=== PATIENT | male | born 2005 | race African-American/Black ===

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

== ENCOUNTER 2023-07-24 16:23 | Outpatient (REF) | payer MEDICAID, SELFPAY ==
[2023-07-25 07:31] LABS: CT PCR NOT DETECTED (Not Detect.); NG PCR NOT DETECTED (Not Detect.)
== END 2023-07-24 16:24 | disposition home or self-care (01) ==
LOC: HO.CHCLNP 16:23
PROVIDERS: Visit Provider Family Medicine
DX: Z11.3 Encounter for screening for infections with a predominantly sexual mode of transmission (principal)
CPT/HCPCS: 0353U

== ENCOUNTER 2023-07-26 12:51 | Outpatient (REF) | payer MEDICAID, SELFPAY ==
[2023-07-26 14:23] LABS: MANUAL DIFF FLAG NO
[2023-07-26 14:34] LABS: Basophils Percent Auto 0.4 % (0-2); Eosinophils Absolute Auto 0.5 X10*3/uL (0.0-0.4); Eosinophils Percent Auto 5.3 % (0-4); Hematocrit 48.5 % (42.0-52.0); Hemoglobin 16.1 g/dl (14.0-18.0); Imm Gran Abs Auto 0.05 X10*3/uL (0.00-0.03); Imm Gran Pct Auto 0.5 % (0.0-0.4); Lymphocytes Absolute Auto 2.9 X10*3/uL (1.2-4.9); Lymphocytes Percent Auto 30.1 % (20-40); Mean Corpuscular HGB Conc 33.2 g/dl (31.0-36.0); Mean Corpuscular Hemoglobin 27.5 pg (27.0-33.0); Mean Corpuscular Volume 82.9 fL (80.0-98.0); Mean Platelet Volume 9.7 fL (9.4-12.4); Monocytes Absolute Auto 0.7 X10*3/uL (0.1-1.2); Monocytes Percent Auto 6.9 % (2-11); Neutrophils Absolute Auto 5.4 x10*3/uL (2.0-8.3); Neutrophils Percent Auto 56.8 % (45-73); Platelet Count 321 X10*3/uL (160-400); Red Blood Count 5.85 X10*6/uL (4.60-5.80); White Blood Count 9.6 X10*3/uL (4.8-10.8)
[2023-07-26 15:36] LABS: Anion Gap 9 (12-20)
[2023-07-26 15:41] LABS: Alanine Aminotransferase 79 U/L (0-40); Alkaline Phosphatase 109 U/L (39-117); Aspartate Amino Transferase 32 U/L (5-37); Blood Urea Nitrogen 9 mg/dL (9-16); Calcium 9.1 mg/dL (8.4-10.2); Carbon Dioxide 28 mmol/L (22-29); Chloride 107 mmol/L (96-108); Cholesterol 134 mg/dL (<200); Estimated Glomerular Filt Rate > 60; Glucose Random 139 mg/dL (60-115); HDL Cholesterol 26 mg/dL (>40); LDL Cholesterol Calculated 70 mg/dL (<100); Potassium 3.8 mmol/L (3.3-5.1); Sodium 140 mmol/L (135-145); Total Protein 7.8 g/dL (6.5-8.0); Triglycerides 191 mg/dL (<150)
[2023-07-27 08:35] LABS: HIV AB/AG Nonreactive (Nonreactive); HIV Num 1 0.05 S/CO (0.00-0.99); ~HepC Num1 0.12 S/CO (0.00-0.79); ~Hepatitis C Antibody Nonreactive (Nonreactive)
[2023-07-27 08:43] LABS: Syphilis Screen Nonreactive (Nonreactive)
== END 2023-07-26 12:52 | disposition home or self-care (01) ==
LOC: HO.CHCLDS 12:51
PROVIDERS: Visit Provider Family Medicine
DX: Z11.3 Encounter for screening for infections with a predominantly sexual mode of transmission (principal); Z11.4 Encounter for screening for human immunodeficiency virus [HIV]; E11.9 Type 2 diabetes mellitus without complications
CPT/HCPCS: 36415; 80053; 80061; 84443; 85025; 86780; 86803; 87389

== ENCOUNTER 2024-09-19 10:40 | Emergency (ER) | payer MEDICAID, SELFPAY ==
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
[2024-09-19 10:54] VITALS: BP 143/81; PULSE 97; RESP 18; TEMP 36.8; O2SAT 96; BMI 33.9
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
--- OUTSIDE RECORDS SUMMARY | 2024-09-19 11:47 | XMS_ITS | Clinical Summary ---
Author Organization [employer] Address [address] [facility] [address] [place] [address] Care Team Providers Care Pan Devulcanizer Helper Name Role Phone Miroslava Garza MD Primary Care Provider [phone] Silvia Lobato PharmD Unavailable [phone] Allergies Active Allergy Reactions Criticality Noted Date Comments Amoxicillin 03/18/2010 Other reaction(s): unspecified Penicillin G 06/01/2022 Medications Spacer/Aero-Holdi ng Chambers (AeroChamber Plus Paul-Vu Medium) misc by Other route. Use as instructed Active albuterol 108 (90 Base) MCG/ACT inhaler Inhale 2 puffs every 4 (four) hours. 18 g 1 4 Active loratadine (Claritin) 10 MG tablet Take 1 tablet (10 mg) by mouth Once per day. 90 tablet 1 4 Active Alcohol Swabs 70 % padsIndications:T ype 2 diabetes mellitus without complication, without long-term current use of insulin ([facility]) Use to test blood sugar once a day 100 each 4 Active Blood Glucose Monitoring Suppl (FreeStyle Denver Lite) w/Device kitIndications:Ty pe 2 diabetes mellitus without complication, without long-term current use of insulin ([facility]) Use to test blood sugar once a day 1 kit 4 Active FreeStyle lancetsIndication s:Type 2 diabetes mellitus without complication, without long-term current use of insulin ([facility]) USE TO TEST BLOOD SUGAR ONCE A DAY 100 each 11 4 Active metFORMIN (Glucophage) 500 MG tablet TAKE 1 TABLET (500 MG) BY MOUTH WITH BREAKFAST AND WITH EVENING MEAL 180 tablet 1 4 Active montelukast (Singulair) 10 MG tablet TAKE 1 TABLET BY MOUTH EVERYDAY AT BEDTIME 90 tablet 1 4 Active fluticasone (Flonase) 50 MCG/ACT nasal spray ADMINISTER 2 SPRAYS INTO EACH NOSTRIL ONCE PER DAY. 48 mL 4 Active lisinopril 5 MG tabletIndications :Primary hypertension Take 1 tablet (5 mg) by mouth Once per day. 30 tablet 11 5 05/23/19 26 Active Dulaglutide (Trulicity) 0.75 MG/0.5ML solution auto-injector Inject 0.75 mg under the skin 1 (one) time per week. 2 mL 2 5 Active Blood Pressure kit Test blood pressure 3 times per week 1 kit 5 Active Active Problems Problem Noted Date Diagnosed Date Periventricular leukomalacia 06/01/2022 Elevated blood pressure reading 02/20/2022 Hidradenitis 02/20/2022 Assessment & Plan (07/24/2023 2:47 PM EDT): Visible open wound, advised to keep area clean with antibacterial wash and prescribing Clindamycin. Hypertriglyceridemia 11/18/2020 Type 2 diabetes mellitus 11/18/2020 Assessment & Plan (07/24/2023 4:06 PM EDT): Ordering Lab work for further evaluation. Refilling blood glucose to monitor at least once a day. Due for COVID booster vaccine, he denied it. Advised PCV-20, he agreed to have administered today.F/u in 1 month, on 08/23/2023. Steatohepatitis 05/20/2019 Mild persistent asthma 02/13/2019 Obesity 04/22/2013 Allergic rhinitis 01/02/2012 Hemiparesis 01/02/2012 Resolved Problems Problem Noted Date Diagnosed Date Resolved Date Hepatitis 06/01/2022 06/07/2022 Diabetes mellitus 06/01/2022 06/07/2022 ALT (SGPT) level raised 08/25/2014 03/0 10/2022 Atopic conjunctivitis 07/30/20142023 Immunizations Immunization Administration Dates Next Due DTaP 09/30/2008, 6,06/17/2004,04/14,02/16/2004 HPV 9-Valent 07/03/2016,10/14/2015 Hep A, ped/adol, 2 dose 04/22/2013,10/01/2009 Hep B, Adolescent or Pediatric 10/14/2004,2004,02/29/2004 Hib (HbOC) 04/20/2005, 5,06/17/2004,04/14 IPV 09/30/2008, 5,04/14/2004,02/17 Influenza injectable quadriv alent preservative free 01/25/2022,04/26/2021,02/13/2019,04/11,03/01/2017,03/18/2015 Influenza, IIV3, injectable 12/28/2009,1 ,04/16/2008,01/29,01/16/2006,03/14/2005 Influenza, Split (incl. francesca fied surface antigen) 01/17/2013,01/02/2012 Influenza, seasonal, injecta ble, preservative free 06/18/2024 MMR 09/30/2008,12/09/2004 Meningococcal MCV4P ACYW-135 11/16/2020,10/14/19 16 Pfizer Covid-19 Vaccine 12+ 06/18/2024,,12/13/2020 Pfizer Covid-19 Vaccine 12+ Bivalent 01/25/2022 Pneumococcal Conjugate PCV 20 07/24/2023 Pneumococcal Conjugate PCV 7 09/01/2005, 08/01/2004,06/17/2004,03/03 Tdap 10/14/2015 Varicella 09/30/2008,12/09/2004 Family History Medical History Relation Name Comments Diabetes Maternal Grandmother Relation Name Status Comments Maternal Grandmother Social History Tobacco Use Types Packs/Day Years Used Date Smoking Tobacco: Never Smokeless Tobacco: Never Tobacco Cessation:Counseling Given: Not Answered Alcohol Use Standard Drinks/Week Comments Never 0 (1 standard drink = 0.6 oz pur e alcohol) Depression Answer Date Recorded Patient Health Questionnaire-9 Score 4 05/23/2024 Patient Health Questionnaire-9 Score 4 05/23/2024 Last PHQ-9: Questionnaire Data Not on file 0 05/23/2024 Housing Stability Answer Date Recorded What is your housing situation today? I have yumiko moreno 05/23/[address] you li ve. Do you have problems with any of the following? None of the above 05/23/2024 Food Insecurity Answer Date Recorded Within the past 12 months, y ou worried that your food would run out before you got money to buy more: Never True 05/23/2024 Within the past 12 months,th e food you bought just didn't last and you didn't have enough money to get more: Never True Transportation Answer Date Recorded In the past 12 months, has l ack of transportation kept you from medical appts, meetings, work or from getting things needed for daily living? No 05/23/2024 Utilities Answer Date Recorded In the past 12 months, has t he electric, gas, oil or water company threatened to shut off services in your home? No 05/23/2024 Depression Answer Date Recorded Patient Health Questionnaire-2 Score 1 05/23/2024 Internet Access Answer Date Recorded Internet Access Q1 Yes 05/23/2024 Internet Access Q2 Not on file 05/23/2024 Sex and Gender Information Value Date Recorded Sex Assigned at Male 01/30/2022 10:20 AM EDT Legal Sex Male 10:20 AM EDT Gender Identity Male 01/30/2022 10:20 AM EDT Sexual Orientation Straight 07/26/2023 4: 13 PM EDT Last Filed Vital Signs Vital Sign Reading Time Taken Comments Blood Pressure 142/98 06/18/2024 2:40 PM EDT Pulse 85 06/18/2024 2:40 PM EDT Temperature 36.6 C (97.8 F) 05/23/2024 3:11 PM EST Respiratory Rate 16 05/23/2024 3:11 PM EST Oxygen Saturation 98% 05/23/2024 3:11 PM EST Inhaled Oxygen Concentration - - Weight 123 kg (272 lb) 05/23/2024 3:11 PM EST Height 184 cm (6' 0.44 ) 05/23/2024 3:11 PM EST Body Mass Index 36.44 05/23/2024 3:11 PM EST Plan of Treatment Upcoming Encounters Date Type Department Care Team (Late st Contact Info) Description 10/07/2024 2:00 PM EDT Medication Management [facility] [address] [place] [address] Silvia Lobato, PharmD [address], [place] [phone] Health Maintenance Due Date Last Done Comments Disability Screening 2003 Diabetes: Foot Exam 12/09/2013 Eye Exam 12/09/2013 Family Planning (PISQ) 12/09/2018 Meningococcal B Vaccine (1 of 2 - Standard) 2019 Diabetes: Urine Protein Screening 12/09/2022 Chlamydia and Gonorrhea Screening 07/23/2024 07/24/2023 Lipid Panel 07/25/2024 07/26/2023, 10/2022, 11/16/2020 Diabetes: Hemoglobin A1C 08/20/2024 025, 07/24/2023, 06/07/2022, Additional history exists Alcohol/Substance Use Screening 05/23/2025 05/23/2024 Depression Screening 05/23/2025 05/23/2024, 05/23/19 25 SDOH Screening 05/23/2025 05/23/2024 Tobacco Screening 05/23/2025 05/23/2024 DTaP/Tdap/Td Vaccines (7 - Td or Tdap) 10/13/2025 10/14/2015, 09/30/2008, 09/01/2005, Additional history exists Zoster Vaccines (1 of 2) 12/09/2053 RSV Patients and Patients Aged 60 years or older (1 - 1-dose 75+ series) 12/09/2078 Hepatitis B Vaccines Completed 10/14/2004, 08/01/2004, 02/29/2004 HIB Vaccines Completed 04/20/2005, 05/2004, 06/17/2004, Additional history exists IPV Vaccines Completed 09/30/2008, 09/30, 04/14/2004, Additional history exists Hepatitis A Vaccines Completed 04/22/2013, 10/02/19 10 HPV Vaccines Completed 07/03/2016, 10/14/2015 Meningococcal Vaccine Completed 11/16/2020, 016 Pneumococcal Vaccine: Pediatrics (0 to 5 Years) and At-Risk Patients (6 to 49) Years Completed 07/24/2023, 09/01/2005, 08/01/2004, Additional history exists HIV Screening Completed 07/26/2023 Hepatitis C Screening Completed 07/26/2023 COVID-19 Vaccine Completed 06/18/2024, , 01/03/2021, Additional history exists Influenza Vaccine Completed 06/18/2024, , 04/26/2021, Additional history exists RSV under 20 months Aged Out No longe r eligible based on patient's age to complete this topic Rotavirus Vaccines Aged Out No longer eligible based on patient's age to complete this topic Procedures Procedure Name Priority Date/Time Associated Diagnosis Comments POCT GLYCATED HEMOGLOBIN, TOTAL Routine 05/23/2024 3:14 PM EST Type 2 diabetes mellitus without complication, without long-term current use of insulin (CMS/HCC) HEPATITIS C AB W/REFL TO HCV RNA, QN, PCR Routine 07/26/2023 12:53 PM EDT Screening examination for STI HIV 1/2 ANTIGEN/ANTIBODY, FOURTH GENERATION W/RFL Routine 07/26/2023 12:53 PM EDT Screening examination for STI LIPID PANEL, STANDARD Routine 07/26/2023 12:53 PM EDT Type 2 diabetes mellitus without complication, without long-term current use of insulin (CMS/HCC) CHLAMYDIA/N. GONORRHOEAE RNA, TMA, UROGENITAL Routine 07/24/2023 2:10 PM EDT Screening examination for STI from Last 3 Months or Most Recently Relevant to Health Maintenance Results * (ABNORMAL) POCT A1C (05/23/2024 3:14 PM EST) Hemoglobin A1C 7.8(A) 4.0 - 6.0 % QC Media Lot # Comment:[id number] Lot# Expiration Date Comment:01/17/2026 Blood 05/23/2024 3:14 PM EST Jenelle Kramer MD POINT OF CARE TEST ENTER/ED IT ORDERABLES Final Result * Hepatitis C Antibody with Reflex to HCV, RNA, Quantitative, Real-Time PCR (07/26/2023 12:53 PM EDT) Pathologist [facility] [place] Hepatitis C Antibody Nonreactive Nonreactive [facility] Comment:Antibodies to HCV no t detected; does not exclude early acuteHCV infection. Blood Venous blood specimen / Unknown 07/26/2023 12:53 PM EDT 07/26/2023 2:18 PM EDT Miroslava Garza MD LAB BLOOD ORDERABLES Final Re sult Performing Organization Address [facility] Co de Phone Number [facility] [address] [place] [phone] * HIV-1/2 Antigen and Antibodies, Fourth Generation, with Reflexes (07/26/2023 12:53 PM EDT) Pathologist [facility] HIV AB/AG Nonreactive Nonreactive [facility] Comment:HIV-1 p24 Ag and/or HIV-1/HIV-2 Ab not detected.A test result that is nonreactive does not exclude thepossibility of exposure to or infection with HIV-1 and/orHIV-2. Nonreactive results in this assay for individualswith prior exposure to HIV-1 and/or HIV-2 may be due toantigen and antibody levels that are below the limit ofdetection of this assay.The [employer] HIV Ag/Ab Combo assay result andsupplemental assay results should be interpreted inconjunction with the patient's clinical presentation,history and other laboratory results. If the results areinconsistent with clinical evidence, additional testing issuggested to confirm the result. Blood Venous blood specimen / Unknown 07/26/2023 12:53 PM EDT 07/26/2023 2:18 PM EDT Miroslava Garza MD LAB BLOOD ORDERABLES Final Re sult Performing Organization Address City/[facility]/ZIP Co de Phone Number [facility] [address] [place] [phone] * (ABNORMAL) Lipid Panel, Standard (07/26/2023 12:53 PM EDT) Triglycerides 191(H) <150 mg/dL [facility] Comment:Desirable Triglyceri de: less than 90 mg/dLBorderline High Triglyceride: 90-129 mg/dLHigh Triglyceride: greater than 130 mg/dL Cholesterol 134 <200 mg/dL [facility] Comment:Desirable Cholestero l: less than 170 mg/dLBorderline High Cholesterol: 170-199 mg/dLHigh Cholesterol: greater than 200 mg/dL LDL Cholesterol Calculated 70 <100 mg/dL [facility] Comment:Desirable LDL: less than 110 mg/dLBorderline LDL: 110-129 mg/dLHigh LDL: greater than or equal to 130 mg/dL HDL Cholesterol 26(L) >40 mg/dL [facility] Comment:Desirable HDL: great er than 45 mg/dLBorderline HDL: 40-45 mg/dLLow HDL: less than 40 mg/dL Note: This HDL assay may give artificially low results in patients with liver disease. Blood Venous blood specimen / Unknown 07/26/2023 12:53 PM EDT 07/26/2023 2:18 PM EDT us Miroslava Garza MD LAB BLOOD ORDERABLES Final Re sult [facility] [address] [place] [phone] * Chlamydia/N. Gonorrhoeae RNA, TMA, Urogenitial (07/24/2023 2:10 PM EDT) Pathologist [facility] CT PCR NOT DETECTED Not Detect. [facility] Comment:A not detected test result does not exclude the possibilityof infection because test results can be affected byimproper specimen collection, concurrent antibiotic therapy,or the number of organisms in the specimen which may bebelow the sensitivity of the test. As with many diagnostictests, results from the Xpert CT/NG assay should beinterpreted in conjunction with other laboratory andclinical data available to the clinician.Xpert CT/NG performance has not been evaluated in patientsless than 14 years of age. The assay should not be used forthe evaluationof suspected sexual abuse or for other medico-legalindications. Additional testing is recommended in anycircumstance when false positive or false negative resultscould lead to adverse medical, social or psychologicalconsequences. NG PCR NOT DETECTED Not Detect. [facility] Comment:A not detected test result does not exclude the possibilityof infection because test results can be affected byimproper specimen collection, concurrent antibiotic therapy,or the number of organisms in the specimen which may bebelow the sensitivity of the test. As with many diagnostictests, results from the Xpert CT/NG assay should beinterpreted in conjunction with other laboratory andclinical data available to the clinician.Xpert CT/NG performance has not been evaluated in patientsless than 14 years of age. The assay should not be used forthe evaluationof suspected sexual abuse or for other medico-legalindications. Additional testing is recommended in anycircumstance when false positive or false negative resultscould lead to adverse medical, social or psychologicalconsequences. Urine (Urine, Random) 07/24/2023 2:10 PM EDT 07/24/2023 5:42 PM EDT Narrative [facility] - 07/25/2023 7:31 AM EDT Urine us Miroslava Garza MD LAB MICROBIOLOGY - GENERAL OR DERABLES Final Result Performing Organization Address City/State/[facility] Co de Phone Number [facility] [address] [place] [phone] from Last 3 Months or Most Recently Relevant to Health Maintenance Insurance [facility] C3 Care Teams Pan Devulcanizer Helper Relationship Specialty Start Date End Date Miroslava Garza MD [address] [place] [phone] PCP - General Family Medicine 07/24/23 Silvia Lobato PharmD [address] [place] [phone] Pharmacist Internal Medicine 06/18/24
[2024-09-19 12:00] VITALS: BP 138/70; PULSE 88; RESP 18; TEMP 36.8; O2SAT 95
[2024-09-19 12:26] VITALS: BP 138/70; PULSE 88; RESP 18; TEMP 36.8; O2SAT 95
== END 2024-09-19 12:28 | disposition home or self-care (01) ==
PROVIDERS: Emergency Provider Emergency Medicine; PCP Nurse Practitioner Family
DX: S80.12XA Contusion of left lower leg, initial encounter (principal); M79.662 Pain in left lower leg; V43.62XA Car passenger injured in collision with other type car in traffic accident, initial encounter; Y93.9 Activity, unspecified; Y92.410 Unspecified street and highway as the place of occurrence of the external cause; Y99.8 Other external cause status
CPT/HCPCS: 73590; 99283; 99284

== ENCOUNTER → 2024-09-19 11:45 | Outpatient (BNV) | payer MEDICAID, SELFPAY | PROVIDERS: PCP Nurse Practitioner Family; Visit Provider Radiology Diagnostic Radiology | DX: R22.42 Localized swelling, mass and lump, left lower limb (principal) | CPT/HCPCS: 73590 ==